=== PATIENT | male | born 1980 | race African-American/Black ===

== ENCOUNTER 2017-03-18 17:57 | Emergency (ER) | payer OTHER ==
--- NOTE | 2017-03-18 19:39 | ED ---
ePri Palm Edward, scribed for Von Rodriguez MD on 03/18/17 at 1900 . Laceration/Wound HPI - HPI Summary HPI Summary: 36 y/o male brought in by correctional officers at [facility] c/o self-inflicted lacerations in the upper and lower extremities. Patient had one deep cut in his right forearm and several other superficial cuts on his right arm, left arm and right roth. The cuts occurred today. Per correctional officers, patient performed lacerations with SI. PMHx depression, suicide attempts and violent behavior. - History of Current Complaint Stated Complaint: RT ARM LAC Time Seen by Provider: 03/18/17 18:28 Hx Obtained From: Patient, Other: - Correctional officers Mechanism of Injury: Sharp/Blunt Trauma - Self-inflicted Onset/Duration: Still Present Onset Severity: Moderate Current Severity: Moderate Pain Intensity: 8 Pain Scale Used: 0-10 Numeric Related Hx: Other - Self-inflicted cuts on his right forearm, left forearm and right roth PMH/Surg Hx/FS Hx/Imm Hx Previously Healthy: No Psychiatric History: Reports: Hx Depression - Per correctional officers, Hx Suicide Attempt - Per correctional officers, Hx of Violent Episodes Against Others - Immunization History Date of Tetanus Vaccine: 03/18/17 at [facility] Infectious Disease History: No Infectious Disease History: Denies: Traveled Outside the [place] in Last 30 Days - Social History Lives: Assisted Living - Inmate at [facility] Alcohol Use: None Substance Use Type: Reports: Marijuana Substance Use Comment - Amount & Last Used: bette and jamshid before incarcerated 6.5 years ago Hx Tobacco Use: Yes Smoking Status (MU): Former Smoker Type: Cigarettes Review of Systems Constitutional: Negative Eyes: Negative ENT: Negative Cardiovascular: Negative Respiratory: Negative Gastrointestinal: Negative Genitourinary: Negative Musculoskeletal: Negative Positive: Other - One deep laceration on right forearm. Superficial wounds on left arm and right roth Neurological: Negative Positive: Depressed - SI, Other - Wounds inflicted with SI All Other Systems Reviewed And Are Negative: Yes Physical Exam Triage Information Reviewed: Yes Vital Signs On Initial Exam: Initial Vitals Temp Pulse Resp BP Pulse Ox 97.6 F 59 16 111/98 100 03/18/17 17:59 03/18/17 17:59 03/18/17 17:59 03/18/17 17:59 03/18/17 17:59 Vital Signs Reviewed: Yes Appearance: Positive: Well-Appearing, No Pain Distress Skin: Positive: Warm, Skin Color Reflects Adequate Perfusion, Dry, Other - 5 cm subcutaneous laceration in the right forearm. Multiple superficial lacerations of partial thickness in the right forearm and right roth. Head/Face: Positive: Normal Head/Face Inspection Eyes: Positive: Normal, EOMI, KECIA ENT: Positive: Normal ENT inspection Neck: Positive: Supple, Nontender Respiratory/Lung Sounds: Positive: Clear to Auscultation, Breath Sounds Present Cardiovascular: Positive: RRR Abdomen Description: Positive: Nontender, Soft Bowel Sounds: Positive: Present Musculoskeletal: Positive: Normal, Strength/ROM Intact Neurological: Positive: Normal, Sensory/Motor Intact, Alert, Oriented to Person Place, Time Psychiatric: Positive: Normal, Affect/Mood Appropriate - Davis Coma Scale Coma Scale Total: 15 Procedures - Laceration/Wound Repair 1 Location: upper extremity - right forearm Description: Linear Anesthesia: Local, 1.0% Length, Depth and Shape: 5 cm subcutaneous linear laceration Betadine Prep?: No - Surecleanse Laceration/Wound Explored: clean Closure: Single Layer Debridement: none Suture Type: Prolene Number of Sutures: 7 Layer Closure?: No Sterile Dressing Applied?: Yes Diagnostics - Vital Signs Vital Signs Temp Pulse Resp BP Pulse Ox 03/18/17 18:32 98.2 F 60 16 103/46 98 03/18/17 17:59 97.6 F 59 16 111/98 100 - Laboratory Lab Statement: Any lab studies that have been ordered have been reviewed, and results considered in the medical decision making process. Laceration Repair Course/Dx - Course Course Of Treatment: NO CRITICAL CARE TIME. DISCHARGE HOME STABLE. - Clinical Impression Provider Diagnoses: Laceration of forearm Discharge - Discharge Plan Condition: Stable Disposition: HOME Patient Education Materials: Laceration (ED) Referrals: Saul Thayer MD [Primary Care Provider] - Additional Instructions: FOLLOW UP WITH YOUR DOCTOR. SUTURES OUT IN 8-10 DAYS. RETURN TO THE EMERGENCY DEPARTMENT FOR ANY WORSENING OF YOUR CONDITION; SIGNS OF INFECTION OR QUESTIONS OR CONCERNS. The documentation as recorded by the Peri fraser Edward accurately reflects the service I personally performed and the decisions made by , Von Rodriguez MD.
== END 2017-03-18 19:48 | disposition home or self-care (01) ==
LOC: ED 17:57
DX: S51.811A Laceration without foreign body of right forearm, initial encounter (principal); X78.9XXA Intentional self-harm by unspecified sharp object, initial encounter; Y93.9 Activity, unspecified; Y92.9 Unspecified place or not applicable
CPT/HCPCS: 12002; 99284